=== PATIENT | female | born 1975 | race Caucasian/White ===

== ENCOUNTER → 2017-10-17 | Outpatient (REF) | LOC: M LAB 09:26 | DX: Z02.9 Encounter for administrative examinations, unspecified (principal) ==

== ENCOUNTER → 2018-08-15 | Outpatient (REF) | payer OTHER ==
[2018-08-15 11:42] LABS: BASO # 0.1 10^3/uL (0.0-0.2); BASO % 1.2 % (0.0-1.0); EOS # 0.4 10^3/uL (0.0-0.50); EOS % 7.6 % (0.0-3.0); HEMATOCRIT 34.8 % (36.0-47.0); HEMOGLOBIN 10.7 g/dl (12.0-15.5); LYMPH # 1.7 10^3/uL (1.5-4.5); LYMPH % 32.6 % (24.0-44.0); MEAN CORPUSCULAR HEMOGLOBIN 26.6 pg (27.0-33.0); MEAN CORPUSCULAR HGB CONC 30.7 g/dl (32.0-36.5); MEAN CORPUSCULAR VOLUME 86.4 fl (80.0-96.0); MONO # 0.5 10^3/uL (0.0-0.8); MONO % 9.9 % (0.0-5.0); NEUTROPHILS # 2.5 10^3/uL (1.8-7.7); NEUTROPHILS % 48.3 % (36.0-66.0); PLATELET COUNT, AUTOMATED 334 10^3/uL (150-450); RED BLOOD COUNT 4.03 10^6/uL (4.00-5.40); WHITE BLOOD COUNT 5.2 10^3/uL (4.0-10.0)
[2018-08-15 11:57] LABS: HEMATOCRIT 34.8 % (36.0-47.0)
[2018-08-15 12:17] LABS: ALBUMIN 3.8 GM/DL (3.2-5.2); ALT/SGPT 24 U/L (12-78); BILIRUBIN,TOTAL 0.3 MG/DL (0.2-1.0); BLOOD UREA NITROGEN 11 MG/DL (7-18); CALCIUM LEVEL 9.3 MG/DL (8.5-10.1); CARBON DIOXIDE LEVEL 30 MEQ/L (21-32); CHLORIDE LEVEL 103 MEQ/L (98-107); CREATININE FOR GFR 0.68 MG/DL (0.55-1.30); GLOMERULAR FILTRATION RATE > 60.0 (>58); GLUCOSE, FASTING 81 MG/DL (70-100); IRON (FE) 46 UG/DL (50-170); POTASSIUM SERUM 4.4 MEQ/L (3.5-5.1); SODIUM LEVEL 139 MEQ/L (136-145); TOTAL 25(OH) VITAMIN D 19.2 NG/ML (30.0-100.0); TOTAL PROTEIN 6.8 GM/DL (6.4-8.2)
[2018-08-15 12:36] LABS: VITAMIN B12 LEVEL 271 PG/ML (247-911)
== END ==
LOC: M SFHCCLAY 09:15
PROVIDERS: ATTEND Family Medicine
DX: R63.5 Abnormal weight gain (principal); Z98.84 Bariatric surgery status

== ENCOUNTER → 2019-03-06 | Outpatient (REF) | payer OTHER ==
[2019-03-07 12:01] LABS: CHLAMYDIA DNA AMPLIFICATION NEGATIVE (NEGATIVE); GC DNA AMPLIFICATION NEGATIVE (NEGATIVE)
== END ==
LOC: M LAB REF 09:55
PROVIDERS: ATTEND Physician Assistant
DX: R30.0 Dysuria (principal)

== ENCOUNTER → 2019-08-27 | Outpatient (REF) | payer OTHER | LOC: M SFHCCLAY 09:56 | PROVIDERS: ATTEND Family Medicine | DX: Z00.00 Encounter for general adult medical examination without abnormal findings (principal); Z80.3 Family history of malignant neoplasm of breast; Z13.79 Encounter for other screening for genetic and chromosomal anomalies; Z98.84 Bariatric surgery status; R63.5 Abnormal weight gain ==

== ENCOUNTER → 2019-09-21 | Outpatient (CLI) | payer OTHER ==
[2019-09-21 13:16] LABS: BASO # 0.1 10^3/uL (0.0-0.2); BASO % 1.3 % (0.0-1.0); EOS # 0.3 10^3/uL (0.0-0.5); EOS % 5.6 % (0.0-3.0); HEMATOCRIT 38.3 % (36.0-47.0); HEMOGLOBIN 11.8 g/dl (12.0-15.5); LYMPH # 1.5 10^3/uL (1.5-5.0); LYMPH % 32.4 % (24.0-44.0); MEAN CORPUSCULAR HEMOGLOBIN 28.4 pg (27.0-33.0); MEAN CORPUSCULAR HGB CONC 30.8 g/dl (32.0-36.5); MEAN CORPUSCULAR VOLUME 92.1 fl (80.0-96.0); MONO # 0.5 10^3/uL (0.0-0.8); NEUTROPHILS # 2.3 10^3/uL (1.5-8.5); NEUTROPHILS % 49.5 % (36.0-66.0); PLATELET COUNT, AUTOMATED 333 10^3/uL (150-450); RED BLOOD COUNT 4.16 10^6/uL (4.00-5.40); WHITE BLOOD COUNT 4.6 10^3/uL (4.0-10.0)
[2019-09-21 13:19] LABS: HEMATOCRIT 38.3 % (36.0-47.0)
[2019-09-21 13:41] LABS: HEMOGLOBIN A1c 5.2 %
[2019-09-21 13:54] LABS: ALBUMIN 3.7 GM/DL (3.2-5.2); ALT/SGPT 19 U/L (12-78); BILIRUBIN,TOTAL 0.3 MG/DL (0.2-1.0); BLOOD UREA NITROGEN 13 MG/DL (7-18); CALCIUM LEVEL 8.7 MG/DL (8.5-10.1); CARBON DIOXIDE LEVEL 30 MEQ/L (21-32); CHLORIDE LEVEL 104 MEQ/L (98-107); CHOLESTEROL LEVEL 212 MG/DL (<200); CHOLESTEROL RISK RATIO 2.465 (<5); CREATININE FOR GFR 0.68 MG/DL (0.55-1.30); GLOMERULAR FILTRATION RATE > 60.0 (>58); GLUCOSE, FASTING 78 MG/DL (70-100); HDL CHOLESTEROL 86 MG/DL (>40); IRON (FE) 49 UG/DL (50-170); LDL CHOLESTEROL 109 MG/DL (<100); NON-HDL-C 126 MG/DL; SODIUM LEVEL 139 MEQ/L (136-145); TOTAL PROTEIN 6.5 GM/DL (6.4-8.2); TRIGLYCERIDES LEVEL 87 MG/DL (<150)
[2019-09-22 11:00] LABS: TOTAL 25(OH) VITAMIN D 18.5 NG/ML (30.0-100.0); VITAMIN B12 LEVEL 351 PG/ML (247-911)
== END ==
LOC: M WUC 08:26
PROVIDERS: ATTEND Family Medicine
DX: R63.5 Abnormal weight gain (principal); Z00.00 Encounter for general adult medical examination without abnormal findings; Z98.84 Bariatric surgery status

== ENCOUNTER → 2019-10-01 | Outpatient (CLI) | payer OTHER ==
--- NOTE | 2019-10-03 14:48 | REPMRS ---
Patient History The patient states she had a clinical breast exam in 2019. Patient had first child at age 37. Family history of breast cancer at age 40 in maternal grandmother, colorectal cancer at age 46 in maternal aunt. Digital Woman Screen Mammo: October 01, 2019 - Exam #: [id number] Bilateral CC and MLO view(s) were taken. Technologist: Monalisa Fontana, Technologist Prior study comparison: May 02, 2017, digital mammo diagnostic bilateral, performed at [facility]. FINDINGS: There are scattered fibroglandular densities. There has been diffuse involutional change in the breast parenchyma in the interval since the 2017 prior study. There has been no other change in the appearance of the mammogram from the prior studies. There is a mild amount of scattered fibroglandular density which is fairly symmetric. There is no interval development of dominant mass, architectural distortion, or grouped microcalcification suggestive of malignancy. 3-D tomosynthesis shows no additional findings. Assessment: BI-RADS/ACR category 1 mammogram. Negative Mammogram. Recommendation Breast MRI of both breasts in 6 months. Routine screening mammogram of both breasts in 1 year (for women over age 40). This patient's Lifetime Breast Cancer Risk is estimated at 21.0 %. Annual screening Breast MRI scanniing is recommended for patient's whose lifetime risk assessment is over 20%. This mammogram was interpreted with the aid of an FDA-approved computer-aided dectection system. Electronically Signed By: Heber Spain MD 10/03/19 [id number]
== END ==
LOC: M WHC 08:46
PROVIDERS: ATTEND Nurse Practitioner Family
DX: Z12.31 Encounter for screening mammogram for malignant neoplasm of breast (principal); Z12.4 Encounter for screening for malignant neoplasm of cervix

== ENCOUNTER → 2020-03-31 | Outpatient (CLI) | payer OTHER ==
[~2020-03-31] MED LIST: PROHANCE 279.3MG/ML 15ML VIAL As Ordered ONE; PROHANCE 279.3MG/ML 5ML VIAL As Ordered ONE
--- NOTE | 2020-05-13 08:29 | REP ---
BILATERAL BREAST MRI STUDY WITHOUT AND WITH INTRAVENOUS (IV) GADOLINIUM HISTORY: High risk breast cancer screening. COMPARISON: MRI study from 06/12/2017 at another facility. Mammography 10/01/2019. TECHNIQUE: Gadolinium enhancement dose is 17 mL of intravenous ProHance. BREAST MRI FINDINGS: There is a symmetric pattern of mild fibroglandular tissue bilaterally. There is no evidence of axillary lymphadenopathy on either side. No significant breast cystic changes are seen. No worrisome skin lesion or skin changes are appreciated. High resolution pre- and postcontrast images show no suspicious morphologic abnormality in either breast. There is no evidence of significant breast cystic change. Dynamically acquired sequential postcontrast images show no suspicious area of enhancement and washout in either breasts to suggest malignancy. Subtraction images show no additional abnormality. IMPRESSION: BI-RADS category 1 negative bilateral breast MRI findings. Repeat screening breast MRI study recommended in one year. Annual screening mammography should continue as well. MTDD
== END ==
LOC: M RAD 07:45
PROVIDERS: ATTEND Nurse Practitioner Family
DX: Z91.89 Other specified personal risk factors, not elsewhere classified (principal)
CPT/HCPCS: A9576; C8908

== ENCOUNTER 2020-11-06 13:48 | Emergency (ER) | payer OTHER ==
[~2020-11-06] VITALS: Ht 160 cm; Wt 90.2 kg
[2020-11-06] MEDS ORDERED: HYDR-3363 (14:00)
[2020-11-06] MEDS ORDERED: ALBU8.5H (14:00)
[2020-11-06] MEDS ORDERED: VITA200012 (14:00)
[2020-11-06] MEDS ORDERED: FERR325T3 (14:00)
[2020-11-06 14:47] LABS: BASO # 0.1 10^3/uL (0.0-0.2); EOS # 0.2 10^3/uL (0.0-0.5); EOS % 4.7 % (0.0-3.0); HEMATOCRIT 43.5 % (36.0-47.0); LYMPH # 1.6 10^3/uL (1.5-5.0); LYMPH % 30.2 % (24.0-44.0); MEAN CORPUSCULAR HEMOGLOBIN 30.3 pg (27.0-33.0); MEAN CORPUSCULAR HGB CONC 32.2 g/dl (32.0-36.5); MEAN CORPUSCULAR VOLUME 94.2 fl (80.0-96.0); MONO # 0.5 10^3/uL (0.0-0.8); MONO % 9.7 % (2.0-8.0); NEUTROPHILS # 2.8 10^3/uL (1.5-8.5); NEUTROPHILS % 54.2 % (36.0-66.0); PLATELET COUNT, AUTOMATED 332 10^3/uL (150-450); RED BLOOD COUNT 4.62 10^6/uL (4.00-5.40); WHITE BLOOD COUNT 5.1 10^3/uL (4.0-10.0)
[2020-11-06 15:08] LABS: ALT/SGPT 26 U/L (12-78); BILIRUBIN,DIRECT < 0.1 MG/DL (0.0-0.2); BILIRUBIN,TOTAL 0.3 MG/DL (0.2-1.0); MAGNESIUM LEVEL 2.2 MG/DL (1.8-2.4); TOTAL PROTEIN 7.3 GM/DL (6.4-8.2)
[2020-11-06] MEDS ORDERED: METOPROLOL TART 25 MG TABLET PO ONE (15:45)
[2020-11-06 15:54] VITALS: BP 162/98
--- NOTE | 2020-11-06 16:16 | REPVR ---
PROCEDURE INFORMATION: Exam: CT Head Without Contrast Exam date and time: 11/06/2020 3:46 PM Age: 45 years old Clinical indication: Pain; Headache; Additional info: Severe headache TECHNIQUE: Imaging protocol: Computed tomography of the head without contrast. Axial and coronal reformatted images were created and reviewed. Radiation optimization: All CT scans at this facility use at least one of these dose optimization techniques: automated exposure control; mA and/or kV adjustment per patient size (includes targeted exams where dose is matched to clinical indication); or iterative reconstruction. COMPARISON: No relevant prior studies available. FINDINGS: Brain: No CT evidence of acute intracranial hemorrhage or acute territorial infarction. No significant mass effect or midline shift. Basal cisterns patent. Cerebral ventricles: Normal in size and configuration. Bones/joints: No acute osseous abnormality. Paranasal sinuses: Moderate ethmoid mucosal thickening. Mild mucosal thickening of the paranasal sinuses. Mastoid air cells: Grossly unremarkable. Soft tissues: Grossly unremarkable. IMPRESSION: 1. No CT evidence of acute intracranial pathology. 2. Additional findings, as above. Electronically signed by: Chau Abel On 11/06/2020 16:16:54 PM
[2020-11-06] MEDS ORDERED: METO1TAB87 PO (17:02)
[2020-11-06 17:10] VITALS: BP 130/76
--- NOTE | 2020-11-07 08:18 | ECGEPIP ---
[facility] - ED Test Date: 2020-11-06 Pat Name: ENDY GRIGSBY Department: Room: - Gender: Female [employer]: : 1975 Requested By: CIERRA Drew Order Number: [id number] Reading MD: Mel Conn Measurements Intervals [place] Rate: 73 P: 2 NV: 146 QRS: 84 QRSD: 76 T: 38 QT: 378 QTc: 416 Interpretive Statements Normal sinus rhythm Low voltage QRS No prior Electronically Signed on 11-07-2020 8:18:09 EDT by Mel Conn
== END 2020-11-06 17:14 | disposition home or self-care (01) ==
LOC: M ED 13:48
DX: G44.209 Tension-type headache, unspecified, not intractable (principal); I10 Essential (primary) hypertension; J45.909 Unspecified asthma, uncomplicated; Z98.84 Bariatric surgery status; Z88.8 Allergy status to other drugs, medicaments and biological substances; Z79.899 Other long term (current) drug therapy

== ENCOUNTER → 2020-12-06 | Outpatient (REF) | payer OTHER ==
[~2020-12-06] MED LIST changes: +ALBU8.5H; +FERR325T3; +HYDR-3363; +METO1TAB87 PO; -PROHANCE 279.3MG/ML 15ML VIAL As Ordered ONE; -PROHANCE 279.3MG/ML 5ML VIAL As Ordered ONE; +VITA200012
[2020-12-07 12:48] LABS: BASO # 0.1 10^3/uL (0.0-0.2); BASO % 0.8 % (0.0-1.0); EOS # 0.4 10^3/uL (0.0-0.5); EOS % 5.3 % (0.0-3.0); HEMATOCRIT 40.6 % (36.0-47.0); HEMOGLOBIN 13.6 g/dl (12.0-15.5); LYMPH # 2.3 10^3/uL (1.5-5.0); LYMPH % 31.6 % (24.0-44.0); MEAN CORPUSCULAR HEMOGLOBIN 31.4 pg (27.0-33.0); MEAN CORPUSCULAR HGB CONC 33.5 g/dl (32.0-36.5); MEAN CORPUSCULAR VOLUME 93.8 fl (80.0-96.0); MONO # 0.7 10^3/uL (0.0-0.8); MONO % 10.1 % (2.0-8.0); NEUTROPHILS # 3.7 10^3/uL (1.5-8.5); NEUTROPHILS % 51.6 % (36.0-66.0); PLATELET COUNT, AUTOMATED 310 10^3/uL (150-450); RED BLOOD COUNT 4.33 10^6/uL (4.00-5.40); WHITE BLOOD COUNT 7.2 10^3/uL (4.0-10.0)
[2020-12-07 13:21] LABS: ALT/SGPT 34 U/L (12-78); BILIRUBIN,TOTAL 0.3 MG/DL (0.2-1.0); BLOOD UREA NITROGEN 16 MG/DL (7-18); CALCIUM LEVEL 9.1 MG/DL (8.5-10.1); CARBON DIOXIDE LEVEL 29 MEQ/L (21-32); CHLORIDE LEVEL 105 MEQ/L (98-107); CHOLESTEROL LEVEL 228 MG/DL (<200); CHOLESTEROL RISK RATIO 2.961 (<5); CREATININE FOR GFR 0.56 MG/DL (0.55-1.30); FREE T4 0.94 NG/DL (0.76-1.46); GLOMERULAR FILTRATION RATE > 60.0 (>58); GLUCOSE, FASTING 89 MG/DL (70-100); HDL CHOLESTEROL 77 MG/DL (>40); IRON (FE) 122 UG/DL (50-170); LDL CHOLESTEROL 82 MG/DL (<100); MAGNESIUM LEVEL 2.3 MG/DL (1.8-2.4); NON-HDL-C 151 MG/DL; PERCENT SATURATION 28.8 % (13.2-45.0); POTASSIUM SERUM 5.4 MEQ/L (3.5-5.1); SODIUM LEVEL 138 MEQ/L (136-145); THYROID STIMULATING HORMONE 0.763 uIU/ML (0.358-3.740); TOTAL 25(OH) VITAMIN D 20.1 NG/ML (30.0-100.0); TOTAL IRON BINDING CAPACITY 423 UG/DL (250-450); TOTAL PROTEIN 6.9 GM/DL (6.4-8.2); TRIGLYCERIDES LEVEL 345 MG/DL (<150)
== END ==
LOC: M SFHCCLAY 14:28
PROVIDERS: ATTEND Nurse Practitioner Family
DX: I10 Essential (primary) hypertension (principal); Z98.84 Bariatric surgery status; F10.20 Alcohol dependence, uncomplicated; F41.9 Anxiety disorder, unspecified

== ENCOUNTER → 2021-02-16 | Outpatient (REF) | payer OTHER ==
[2021-02-16 12:50] LABS: HEMOGLOBIN A1c 5.2 %
== END ==
LOC: M SFHCCLAY 07:08
PROVIDERS: ATTEND Nurse Practitioner Family
DX: R73.9 Hyperglycemia, unspecified (principal)

== ENCOUNTER → 2021-02-28 | Outpatient (CLI) | payer MEDICAID | LOC: M OUTALCOH 07:48 | PROVIDERS: ATTEND Psychiatry & Neurology Psychiatry | DX: F10.20 Alcohol dependence, uncomplicated (principal) ==

== ENCOUNTER 2021-03-10 09:00 | Outpatient (RCR) | payer MEDICAID | END 2021-03-19 | LOC: M OUTALCOH 09:00 | PROVIDERS: ATTEND Psychiatry & Neurology Psychiatry | DX: F10.20 Alcohol dependence, uncomplicated (principal) ==

== ENCOUNTER → 2021-06-01 | Outpatient (CLI) | payer OTHER, MEDICAID ==
--- NOTE | 2021-06-01 17:46 | REPMRS ---
Patient History The patient states she has not had a clinical breast exam in over a year. Patient had first child at age 37. Family history of breast cancer at age 40 in maternal grandmother, colorectal cancer at age 46 in maternal aunt. Tomosynthesis is performed. [place] breast density is a. Patient states no breast complaints today. Patient has signed MRS History Sheet. Digital Woman Screen Mammo: June 01, 2021 - Exam #: [id number] Bilateral CC and MLO view(s) were taken. Technologist: Melanie Oliva, Project Management Professional Prior study comparison: October 01, 2019, bilateral digital woman screen mammo performed at [facility]. May 02, 2017, digital mammo diagnostic bilateral, performed at [facility]. FINDINGS: There are scattered fibroglandular densities. There has been no change in the appearance of the mammogram from the prior studies. There is a mild amount of residual fibroglandular tissue which is fairly symmetric. There is no interval development of dominant mass, architectural distortion, or clustered microcalcification suggestive of malignancy. Assessment: BI-RADS/ACR category 1 mammogram. Negative Mammogram. Recommendation Routine screening mammogram in 1 year (for women over age 40). This mammogram was interpreted with the aid of an FDA-approved computer-aided dectection system. The Lifetime Breast Cancer Risk is estimated at 21.5%. Yearly supplemental screening MRI of the breasts is recommended for patients with an elevated lifetime risk of breast cancer of 20% or greater, in addition to annual screening mammography, staggered every 6 months. Electronically Signed By: Silvestre Arriaza MD 06/01/21 0821
== END ==
LOC: M WHC 16:13
PROVIDERS: ATTEND Nurse Practitioner Women's Health
DX: Z12.31 Encounter for screening mammogram for malignant neoplasm of breast (principal)

== ENCOUNTER → 2021-11-11 | Outpatient (CLI) | payer OTHER ==
[~2021-11-11] MED LIST changes: +CARV6.25 PO; -FERR325T3; +FERR325T3 PO; -HYDR-3363; +HYDR-3363 PO; +LEXA1TAB PO; +LEXA1TAB2 PO; +VALA1TAB5 PO
[2021-11-11 16:15] LABS: BLOOD UREA NITROGEN 17 MG/DL (7-18); CALCIUM LEVEL 9.2 MG/DL (8.5-10.1); CARBON DIOXIDE LEVEL 32 MEQ/L (21-32); CHLORIDE LEVEL 107 MEQ/L (98-107); CREATININE FOR GFR 0.67 MG/DL (0.55-1.30); GLOMERULAR FILTRATION RATE > 60.0 (>58); GLUCOSE, FASTING 81 MG/DL (70-100); SODIUM LEVEL 141 MEQ/L (136-145)
== END ==
LOC: M EKG 15:03
PROVIDERS: ATTEND Anesthesiology
DX: Z01.810 Encounter for preprocedural cardiovascular examination (principal)

== ENCOUNTER → 2021-11-19 | Outpatient (CLI) | payer MEDICAID, OTHER | LOC: M LABSMTC 10:55 | PROVIDERS: ATTEND Anesthesiology | DX: Z20.828 Contact with and (suspected) exposure to other viral communicable diseases (principal); Z11.59 Encounter for screening for other viral diseases ==

== ENCOUNTER → 2021-12-17 | Outpatient (CLI) | payer OTHER ==
[~2021-12-17] MED LIST changes: +D 50CAP2 PO; +THERTAB52 PO
== END ==
LOC: M LABSMTC 11:15
PROVIDERS: ATTEND Anesthesiology
DX: Z01.812 Encounter for preprocedural laboratory examination (principal); Z20.822 Contact with and (suspected) exposure to COVID-19

== ENCOUNTER → 2022-02-12 | Outpatient (CLI) | payer OTHER | LOC: M LABSMTC 09:15 | PROVIDERS: ATTEND Anesthesiology | DX: Z01.812 Encounter for preprocedural laboratory examination (principal); Z20.822 Contact with and (suspected) exposure to COVID-19 ==

== ENCOUNTER 2022-02-15 12:57 | Day surgery (SDC) | payer OTHER ==
[~2022-02-15] VITALS: Ht 160 cm; Wt 101.6 kg
[~2022-02-15 12:57] MED LIST changes: +LIDOCAINE 1% MDV 20ML VIAL SQ PRN; +LR 1,000 ML IV ONE; +ceFAZolin SOD 2 GM in IV 1 EA IV ONE
[2022-02-15] MEDS ORDERED: LR 1,000 ML IV SCH ×3 (13:15→17:15)
[2022-02-15 13:33] LABS: HEMATOCRIT 41.8 % (36.0-47.0); HEMOGLOBIN 13.8 g/dl (12.0-15.5); MEAN CORPUSCULAR HEMOGLOBIN 31.1 pg (27.0-33.0); MEAN CORPUSCULAR VOLUME 94.1 fl (80.0-96.0); PLATELET COUNT, AUTOMATED 322 10^3/uL (150-450); RED BLOOD COUNT 4.44 10^6/uL (4.00-5.40); WHITE BLOOD COUNT 7.8 10^3/uL (4.0-10.0)
[2022-02-15] MEDS ORDERED: BUPIVACAINE HCL 0.25% 10ML VIAL As Ordered ONE (13:50)
[2022-02-15] MEDS ORDERED: KETOROLAC 60MG 2ML VIAL As Ordered ONE (14:20)
[2022-02-15] MEDS ORDERED: dexameTHASONE 4 MG/ML 1ML VIAL (J1100 PER 1MG) As Ordered ONE (14:20)
[2022-02-15] MEDS ORDERED: ONDANSETRON 4MG 2ML VIAL As Ordered ONE (14:20)
[2022-02-15] MEDS ORDERED: ROCURONIUM BROMIDE 50 MG/5 ML VIAL As Ordered ONE (14:20)
[2022-02-15] MEDS ORDERED: SUGAMMADEX SODIUM 500 MG/5 ML VIAL (BRIDION) As Ordered ONE (14:20)
[2022-02-15] MEDS ORDERED: MIDAZOLAM INJ 2MG/2ML VIAL (J2250 PER 1MG) As Ordered ONE (14:20)
[2022-02-15] MEDS ORDERED: fentaNYL 100 MCG/2 ML INJECTION As Ordered ONE ×2 (14:20→15:20)
[2022-02-15] MEDS ORDERED: LIDOCAINE 2% 100MG/5ML SDV (FOR ANES.) As Ordered ONE (14:20)
[2022-02-15] MEDS ORDERED: propofoL 200 MG/20 ML VIAL As Ordered ONE (14:21)
[2022-02-15] MEDS ORDERED: ACETAMINOPHEN 1000MG 100ML IV BTL (OFIRMEV) (J0131 PER 10MG) As Ordered ONE (15:08)
[2022-02-15] MEDS ORDERED: HYDROmorphone HCL 2MG/ML 1ML VIAL As Ordered ONE (15:46)
[2022-02-15] MEDS ORDERED: METOCLOPRAMIDE INJ 10MG/2ML VIAL (J2765 PER 1) IV PRN (16:30)
[2022-02-15] MEDS ORDERED: fentaNYL 100 MCG/2 ML INJECTION IV PRN (16:30)
[2022-02-15] MEDS ORDERED: oxyCODONE 5MG TAB PO PRN (16:30)
[2022-02-15] MEDS ORDERED: MEPERIDINE INJ 25 MG/ML VIAL (J2175) IV PRN (16:30)
[2022-02-15] MEDS ORDERED: ONDANSETRON 4MG 2ML VIAL IV PRN (16:30)
[2022-02-15] MEDS ORDERED: HYDROMORPHONE HCL 0.5 MG/ 0.5 ML SYRINGE (J1170 PER 1) IV PRN (16:30)
[2022-02-15] MEDS ORDERED: OXYC1TAB23 PO (16:57)
[2022-02-15] MEDS ORDERED: IBUP-1022 PO (16:57)
[2022-02-15] MEDS ORDERED: PERCOCET 5MG/325MG TAB PO PRN (17:15)
[2022-02-15 18:15] VITALS: BP 170/92
[2022-02-15] MEDS ORDERED: KETOROLAC 30 MG/ML 1ML VIAL IV PRN (22:00)
== END 2022-02-15 18:24 | disposition home or self-care (01) ==
LOC: M SDC 12:57
PROVIDERS: ATTEND Specialist
DX: N92.0 Excessive and frequent menstruation with regular cycle (principal); I10 Essential (primary) hypertension; J45.909 Unspecified asthma, uncomplicated; Z98.84 Bariatric surgery status; F41.9 Anxiety disorder, unspecified; Z79.899 Other long term (current) drug therapy
CPT/HCPCS: 36415; 58301; 58571; 81025; 85027; 86850; 86900; 86901; 88307; J0131; J1100; J1170; J1885; J2250; J2405; J3010; S2900

== ENCOUNTER 2022-05-25 09:30 | Emergency (ER) | payer OTHER ==
[~2022-05-25] VITALS: Ht 160 cm; Wt 101.3 kg
[~2022-05-25 09:30] MED LIST changes: +IBUP-1022 PO; -LIDOCAINE 1% MDV 20ML VIAL SQ PRN; -LR 1,000 ML IV ONE; +OXYC1TAB23 PO; -ceFAZolin SOD 2 GM in IV 1 EA IV ONE
[2022-05-25] MEDS ORDERED: NALT50TA4 (09:55)
[2022-05-25 12:02] LABS: BASO # 0.1 10^3/uL (0.0-0.2); EOS # 0.3 10^3/uL (0.0-0.5); EOS % 5.5 % (0.0-3.0); HEMATOCRIT 38.5 % (36.0-47.0); HEMOGLOBIN 12.4 g/dl (12.0-15.5); LYMPH # 1.8 10^3/uL (1.5-5.0); LYMPH % 30.1 % (24.0-44.0); MEAN CORPUSCULAR HEMOGLOBIN 31.2 pg (27.0-33.0); MEAN CORPUSCULAR HGB CONC 32.2 g/dl (32.0-36.5); MEAN CORPUSCULAR VOLUME 96.7 fl (80.0-96.0); MONO # 0.6 10^3/uL (0.0-0.8); MONO % 9.7 % (2.0-8.0); NEUTROPHILS # 3.2 10^3/uL (1.5-8.5); NEUTROPHILS % 53.2 % (36.0-66.0); PLATELET COUNT, AUTOMATED 280 10^3/uL (150-450); RED BLOOD COUNT 3.98 10^6/uL (4.00-5.40)
[2022-05-25 12:37] LABS: CK-MB VALUE MASS < 1.0 NG/ML (<3.6); CPK CREATINE PHOSPHOKINASE 109 U/L (26-192); MB/CK RELATIVE INDEX 0.92 (< OR =4)
[2022-05-25 12:47] LABS: ALBUMIN 3.6 GM/DL (3.2-5.2); ALT/SGPT 47 U/L (12-78); BILIRUBIN,DIRECT < 0.1 MG/DL (0.0-0.2); BILIRUBIN,TOTAL 0.4 MG/DL (0.2-1.0); BLOOD UREA NITROGEN 12 MG/DL (7-18); CALCIUM LEVEL 8.9 MG/DL (8.5-10.1); CARBON DIOXIDE LEVEL 30 MEQ/L (21-32); CHLORIDE LEVEL 104 MEQ/L (98-107); CREATININE FOR GFR 0.75 MG/DL (0.55-1.30); GLOMERULAR FILTRATION RATE > 60.0 (>58); GLUCOSE, FASTING 92 MG/DL (70-100); LIPASE 192 U/L (73-393); NT-PRO BNP 32 PG/ML (<125); POTASSIUM SERUM 4.7 MEQ/L (3.5-5.1); SODIUM LEVEL 138 MEQ/L (136-145); TOTAL PROTEIN 6.9 GM/DL (6.4-8.2)
[2022-05-25] MEDS ORDERED: ISOVUE-370 76% 100ML VIAL As Ordered ONE (13:13)
[2022-05-25 13:52] LABS: CK-MB VALUE MASS < 1.0 NG/ML (<3.6); CPK CREATINE PHOSPHOKINASE 101 U/L (26-192); MB/CK RELATIVE INDEX 0.99 (< OR =4)
[2022-05-25 14:10] VITALS: BP 154/94
== END 2022-05-25 14:37 | disposition home or self-care (01) ==
LOC: M ED 09:30
DX: R07.89 Other chest pain (principal); R91.1 Solitary pulmonary nodule; I10 Essential (primary) hypertension; Z88.8 Allergy status to other drugs, medicaments and biological substances; Z91.013 Allergy to seafood; Z98.84 Bariatric surgery status
CPT/HCPCS: 36415; 71045; 71275; 80048; 80076; 82550; 82553; 83690; 83880; 85025; 93005; 93041; 94760; 99285; Q9967

== ENCOUNTER → 2022-11-02 | Outpatient (REF) | payer OTHER ==
[~2022-11-02] MED LIST changes: +NALT50TA4
[2022-11-02 14:48] LABS: BASO # 0.1 10^3/uL (0.0-0.2); BASO % 1.2 % (0.0-1.0); EOS # 0.3 10^3/uL (0.0-0.5); EOS % 6.6 % (0.0-3.0); HEMATOCRIT 41.4 % (36.0-47.0); HEMOGLOBIN 13.5 g/dl (12.0-15.5); LYMPH # 1.4 10^3/uL (1.5-5.0); LYMPH % 28.1 % (24.0-44.0); MEAN CORPUSCULAR HEMOGLOBIN 31.5 pg (27.0-33.0); MEAN CORPUSCULAR HGB CONC 32.6 g/dl (32.0-36.5); MEAN CORPUSCULAR VOLUME 96.7 fl (80.0-96.0); MONO # 0.5 10^3/uL (0.0-0.8); MONO % 10.4 % (2.0-8.0); NEUTROPHILS # 2.7 10^3/uL (1.5-8.5); NEUTROPHILS % 53.1 % (36.0-66.0); PLATELET COUNT, AUTOMATED 318 10^3/uL (150-450); RED BLOOD COUNT 4.28 10^6/uL (4.00-5.40)
[2022-11-02 15:53] LABS: ALKALINE PHOSPHATASE 120 U/L (46-116); ALT/SGPT 34 U/L (7.0-40); AST/SGOT 23 U/L (<34); BILIRUBIN,TOTAL 0.3 MG/DL (0.3-1.2); BLOOD UREA NITROGEN 16 MG/DL (9-23); CALCIUM LEVEL 9.4 MG/DL (8.5-10.1); CARBON DIOXIDE LEVEL 33 MMOL/L (20-31); CHLORIDE LEVEL 105 MMOL/L (98-107); CHOLESTEROL LEVEL 245 MG/DL (<200); CREATININE FOR GFR 0.62 MG/DL (0.55-1.30); GLOMERULAR FILTRATION RATE > 60.0 (>58); GLUCOSE, FASTING 91 MG/DL (60-100); HDL CHOLESTEROL 81.4 MG/DL (>40); LDL CHOLESTEROL 137.8 MG/DL (<100); NON-HDL-C 163.6 MG/DL; POTASSIUM SERUM 4.8 MMOL/L (3.5-5.1); SODIUM LEVEL 140 MMOL/L (136-145); THYROID STIMULATING HORMONE 1.124 uIU/ML (0.55-4.78); TOTAL PROTEIN 6.9 G/DL (5.7-8.2); TRIGLYCERIDES LEVEL 129 MG/DL (<150)
== END ==
LOC: M LAB REF 12:23
PROVIDERS: ATTEND Family Medicine Addiction Medicine
DX: I10 Essential (primary) hypertension (principal)

== ENCOUNTER → 2022-11-13 | Outpatient (CLI) | payer OTHER | LOC: M PLARAD 10:50 | PROVIDERS: ATTEND Family Medicine Addiction Medicine | DX: R91.1 Solitary pulmonary nodule (principal) | CPT/HCPCS: 78815; A9552 ==

== ENCOUNTER → 2023-08-27 | Outpatient (CLI) | payer OTHER | LOC: M WHC 07:52 | PROVIDERS: ATTEND Family Medicine Addiction Medicine | DX: Z12.31 Encounter for screening mammogram for malignant neoplasm of breast (principal) ==

== ENCOUNTER → 2024-01-03 | Outpatient (REF) | payer OTHER ==
[2024-01-03 11:55] LABS: FREE T4 1.35 NG/DL (0.89-1.76)
[2024-01-03 11:56] LABS: FERRITIN 135.8 NG/ML (7.3-270.7); THYROID STIMULATING HORMONE 0.842 uIU/ML (0.55-4.78)
== END ==
LOC: M LAB REF 10:45
PROVIDERS: ATTEND Internal Medicine Cardiovascular Disease
DX: R00.2 Palpitations (principal)

== ENCOUNTER → 2024-11-20 | Outpatient (CLI) | payer OTHER | LOC: M WHC 12:31 | PROVIDERS: ATTEND Family Medicine Addiction Medicine | DX: Z12.31 Encounter for screening mammogram for malignant neoplasm of breast (principal); R92.313 Mammographic fatty tissue density, bilateral breasts ==

== ENCOUNTER → 2025-01-01 | Outpatient (REF) | payer OTHER ==
[2025-01-01 10:43] LABS: ALKALINE PHOSPHATASE 109 U/L (35-104); ALT/SGPT 32 U/L (7.0-40); AST/SGOT 21 U/L (<34); BILIRUBIN,TOTAL 0.4 MG/DL (0.3-1.2); BLOOD UREA NITROGEN 15 MG/DL (9-23); CALCIUM LEVEL 9.5 MG/DL (8.5-10.1); CARBON DIOXIDE LEVEL 29 MMOL/L (20-31); CHLORIDE LEVEL 101 MMOL/L (98-107); CHOLESTEROL LEVEL 275 MG/DL (<200); CREATININE FOR GFR 0.69 MG/DL (0.55-1.30); GLOMERULAR FILTRATION RATE > 90.0 (>58); GLUCOSE, FASTING 91 MG/DL (60-100); HDL CHOLESTEROL 78.5 MG/DL (>40); LDL CHOLESTEROL 165.3 MG/DL (<100); NON-HDL-C 196.5 MG/DL; POTASSIUM SERUM 4.5 MMOL/L (3.5-5.1); SODIUM LEVEL 138 MMOL/L (136-145); TRIGLYCERIDES LEVEL 156 MG/DL (<150)
[2025-01-01 10:45] LABS: THYROID STIMULATING HORMONE 0.802 uIU/ML (0.55-4.78)
[2025-01-01 10:57] LABS: HEMOGLOBIN A1c 5.2 % (4.0-6.0)
== END ==
LOC: M LAB REF 09:28
PROVIDERS: ATTEND Family Medicine Addiction Medicine
DX: I10 Essential (primary) hypertension (principal)

== ENCOUNTER → 2025-03-25 | Outpatient (REF) | payer OTHER ==
[2025-03-25 11:57] LABS: CHOLESTEROL LEVEL 279.0 MG/DL (<200); CHOLESTEROL RISK RATIO 3.57 (<5); LDL CHOLESTEROL 171.6 MG/DL (<100); NON-HDL-C 201.0 MG/DL; TRIGLYCERIDES LEVEL 147.0 MG/DL (<150)
== END ==
LOC: M LAB REF 10:39
PROVIDERS: ATTEND Nurse Practitioner Family
DX: E78.5 Hyperlipidemia, unspecified (principal)

== ENCOUNTER → 2025-07-23 | Outpatient (RCR) ==
[~2025-07-23] MED LIST changes: -IBUP-1022 PO; +IBUP600T42 PO
== END ==
LOC: M EMPSKH 06-24 09:30
PROVIDERS: ATTEND Family Medicine
DX: Z20.828 Contact with and (suspected) exposure to other viral communicable diseases (principal)